=== PATIENT | female | born 1930 | race Caucasian/White ===

== ENCOUNTER 2016-10-28 12:39 | Emergency (ER) | payer MEDICARE, MEDICAID ==
[2016-10-28] MEDS ORDERED: Sodium Chloride 0.9% 1,000 ML IV ONE (13:19)
[2016-10-28] MEDS ORDERED: Ondansetron 4 MG/2 ML SDV IVPUSH ONE (13:21)
--- NOTE | 2016-10-28 13:35 | EDM.PDOC ---
<Arsenio Hay - Last Filed: 10/28/16 15:27> ED HPI GENERAL MEDICAL PROBLEM - General Chief Complaint: Abdominal Pain Stated Complaint: DIZZY, STOMACH PAIN, VOMITING Time Seen by Provider: 10/28/16 13:15 Source of Information: Reports: Patient History Limitations: Reports: No Limitations - History of Present Illness INITIAL COMMENTS - FREE TEXT/NARRATIVE: History of present illness: [86 year old female comes in complaining of abdominal pain. Indicates she has not had a bowel movement 2 days and her normal pattern is daily. Patient has a history of colon cancer as well as a very large abdominal hernia. Patient indicates that she has had nausea with scant amount of vomiting 2 days and no diarrhea.] Review of systems: As per history of present illness and below otherwise all systems reviewed and negative. Past medical history: As per history of present illness and as reviewed below otherwise noncontributory. Surgical history: As per history of present illness and as reviewed below otherwise noncontributory. Social history: No reported history of drug or alcohol abuse. Family history: As per history of present illness and as reviewed below otherwise noncontributory. Physical exam: HEENT: Atraumatic, normocephalic, pupils reactive, negative for conjunctival pallor or scleral icterus, mucous membranes moist, throat clear, neck supple, nontender, trachea midline. Lungs: Clear to auscultation, breath sounds equal bilaterally, chest nontender. Heart: A fib negative for clicks, rubs, or JVD. Abdomen: Soft, protuberant soft abdomen with slight diffuse nonspecific tenderness in bilateral lower quadrants. Negative for masses or hepatosplenomegaly. Negative for costovertebral tenderness. Pelvis: Stable nontender. Genitourinary: Deferred. Rectal: Deferred. Extremities: Atraumatic, negative for cords or calf pain. Neurovascular unremarkable. Neuro: Awake, alert, oriented. Cranial nerves II through XII unremarkable. Cerebellum unremarkable. Motor and sensory unremarkable throughout. Exam nonfocal. Called Dr. Cooper spoke to her in regards to the patient she indicated she felt the patient would better better served at a higher level of care secondary to her cardiac status, multi-morbidity, and age would merit a higher level ICU than what we had available. [facility] called, Dr. Andrade agreed to receive the patient. Diagnostics: [CBC, CMP, EKG, CT of abdomen without contrast] Therapeutics: [IV, Zofran] Impression: [Left lower small incarcerated hernia with potential strangulation by radiographic study] Plan: [Transfer to [place] [facility] ] Definitive disposition and diagnosis as appropriate pending reevaluation and review of above. Abdomen Pain Score (Numeric/FACES): 7 - Related Data Allergies Allergy/AdvReac Type Severity Reaction Status Date / Time No Known Allergies Allergy Verified 05/16/16 15:13 Home Meds: Home Meds Cyanocobalamin (Vitamin B-12) [B-12] 1,000 mcg PO DAILY 03/06/14 [History] Metoprolol Succinate [Toprol XL] 25 mg PO DAILY 03/06/14 [History] Omeprazole 20 mg PO ACBREAKFAST 03/06/14 [History] Levothyroxine 150 mcg PO SUTUWETHSA@0730 03/19/14 [History] atorvaSTATin [Lipitor] 10 mg PO BEDTIME 03/19/14 [History] Digoxin [Digox] 125 mcg PO DAILY 03/21/15 [History] Levothyroxine 75 mcg PO MOFR@0730 05/16/16 [History] Magnesium Oxide 400 mg PO BID 05/16/16 [History] Acetaminophen [Tylenol] 650 mg PO Q4H PRN #30 tablet 05/20/16 [Rx] Cephalexin [IJD: Cephalexin] 500 mg PO BID #10 capsule 05/20/16 [Rx] Nystatin [Nystop] 100,000 units TOP TID #1 bottle 05/20/16 [Rx] Iron Polysaccharide Complex [Polysaccharide Iron 150] 150 mg PO TID 10/28/16 [ History] LORazepam [Ativan] 0.5 mg PO TID PRN 10/28/16 [History] Rivaroxaban [Xarelto] 15 mg PO PCDINNER 10/28/16 [History] Past Medical History Cardiovascular History: Reports: Afib, Heart Failure Genitourinary History: Reports: UTI, Recurrent Other Genitourinary History: Kidney infection [employer]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: Musculoskeletal History: Reports: Arthritis Neurological History: Reports: CVA Endocrine/Metabolic History: Reports: Hypothyroidism Hematologic History: Reports: B12 Deficiency Oncologic (Cancer) History: Reports: Colon - Past Surgical History HEENT Surgical History: Reports: Cataract Surgery Cardiovascular Surgical History: Reports: None GI Surgical History: Reports: Hernia, Inguinal Social & Family History - Family History Family Medical History: Noncontributory - Tobacco Use Smoking Status *Q: Never Smoker Years of Tobacco use: 3 Used Tobacco, but Quit: Yes Month Tobacco Last Used: 30 years ago Second Hand Smoke Exposure: No - Caffeine Use Caffeine Use: Reports: None - Alcohol Use Days Per Week of Alcohol Use: 0 - Recreational Drug Use Recreational Drug Use: No ED ROS GENERAL - Review of Systems Review Of Systems: See Below (See history of present illness) ED EXAM, GI/ABD - Physical Exam Exam: See Below (See history of present illness) Course - Vital Signs Last Recorded V/S: Last Vital Signs Temp 36.8 C 10/28/16 16:03 Pulse 81 10/28/16 16:03 Resp 16 10/28/16 16:03 BP 128/56 L 10/28/16 16:03 Pulse Ox 91 L 10/28/16 16:03 - Orders/Labs/Meds Orders: Active Orders 24 hr Category Date Time Status EKG Documentation Completion [RC] STAT Care 10/28/16 13:19 Active Labs: Laboratory Tests 10/28/16 10/28/16 10/28/16 Range/Units 13:46 13:46 13:46 WBC 12.45 H (4.0-11.0) K/uL RBC 4.55 (4.30-5.90) M/uL Hgb 14.0 (12.0-16.0) g/dL Hct 43.8 (36.0-46.0) % MCV 96.3 (80.0-98.0) fL MCH 30.8 (27.0-32.0) pg MCHC 32.0 (31.0-37.0) g/dL RDW Std Deviation 47.2 (28.0-62.0) fl RDW Coeff of Nanette 14 (11.0-15.0) % Plt Count 176 (150-400) K/uL MPV 10.50 (7.40-12.00) fL Neut % (Auto) 80.0 (48.0-80.0) % Lymph % (Auto) 9.7 L (16.0-40.0) % [place] % (Auto) 10.2 (0.0-15.0) % Eos % (Auto) 0.0 (0.0-7.0) % Baso % (Auto) 0.1 (0.0-1.5) % Neut # (Auto) 10.0 H (1.4-5.7) K/uL Lymph # (Auto) 1.2 (0.6-2.4) K/uL [place] # (Auto) 1.3 H (0.0-0.8) K/uL Eos # (Auto) 0.0 (0.0-0.7) K/uL Baso # (Auto) 0.0 (0.0-0.1) K/uL Nucleated RBC % 0.0 /100WBC Nucleated RBCs # 0 K/uL Sodium 140 (136-146) mmol/L Potassium 3.5 (3.5-5.1) mmol/L Chloride 96 L (98-110) mmol/L Carbon Dioxide 28 (21-31) mmol/L BUN 37 H (6.0-23.0) mg/dL Creatinine 1.2 (0.6-1.5) mg/dL Est Cr Clr Drug Dosing 24.17 mL/min Estimated GFR (MDRD) 42.6 ml/min Glucose 153 H (60-110) mg/dL Calcium 9.9 (8.8-10.8) mg/dL Total Bilirubin 1.2 (0.1-1.5) mg/dL AST 21 (5-40) IU/L ALT 22 (8-54) IU/L Alkaline Phosphatase 53 (40-150) Troponin I < 0.10 (0.0-0.29) NG/ML Total Protein 8.0 (6.0-8.0) g/dL Albumin 4.5 (3.4-4.8) g/dL Globulin 3.5 (2.0-3.5) g/dL Albumin/Globulin Ratio 1.3 (1.3-2.8) Meds: Medications Discontinued Medications Generic Name Dose Route Start Last Admin Trade Name Freq PRN Reason Stop Dose Admin Sodium Chloride 1,000 mls @ 999 mls/hr 10/28/16 13:19 10/28/16 13:58 Normal Saline IV 10/28/16 14:19 999 mls/hr STAT ONE Administration Ondansetron HCl 4 mg 10/28/16 13:21 10/28/16 13:58 Zofran IVPUSH 10/28/16 13:22 4 mg ONETIME ONE Administration Departure - Departure Time of Disposition: 15:49 Disposition: DC/Tfer to Acute Hospital 02 Condition: Fair Clinical Impression: Incarcerated inguinal hernia, unilateral - Discharge Information Referrals: PCP,None [Primary Care Provider] - Forms: ED Department Discharge <Ronda Chris - Last Filed: 10/28/16 18:12> ED HPI GENERAL MEDICAL PROBLEM - History of Present Illness INITIAL COMMENTS - FREE TEXT/NARRATIVE: Please note that Dr. Sykes or junior mechanical engineer was involved with this case with respect to evaluating her EKG. There was some concern about her EKG and he reviewed this and felt that medical evaluation was indicated and he could be involved with the patient were admitted here
--- NOTE | 2016-10-28 15:24 | CT ---
CT of the abdomen and pelvis without contrast. HISTORY: Pain TECHNIQUE: Axial CT images were obtained of the abdomen and pelvis without contrast. Coronal and sag ittal reconstructions obtained. FINDINGS: Reticulated groundglass opacities are noted within the lung bases bilaterally. The liver, spleen, adrenal glands, and pancreas appear unremarkable for noncontrast examination. Cho lecystectomy. There is no bulky retroperitoneal lymphadenopathy. No abdominal ascites. The stomach is markedly dilated extending into the mid jejunum secondary to a small left inguinal he rnia. The herniated component demonstrates moderate adjacent stranding. There is also a broad-based midline abdominal hernia containing part of the stomach and bowel. Diverticulosis without evidence o f diverticulitis. There are no calcifications noted within the kidneys or along the courses of the ureters bilaterally . There is a small left renal cyst. Vascular calcifications are noted. There is no bulky pelvic lymphadenopathy. No free fluid. No free air. The urinary bladder appears no rmal. Degenerative changes are noted within the hips and lower spine. IMPRESSION: 1. High-grade small bowel obstruction within the mid point of the jejunum secondary to a left inguin al hernia. There is moderate stranding adjacent to the herniated portion of bowel, this may suggest strangulation. 2. Broad-based midline hernia containing stomach and bowel also noted. 3. Diverticulosis without evidence of diverticulitis. 4. Reticular and groundglass opacities within the lung bases, likely representing an atypical infect ious process, aspiration pneumonitis is also a consideration.
[2016-10-28 16:04] VITALS: BP 128/56
== END 2016-10-28 16:13 ==
LOC: MW.ED 12:39
DX: K40.90 Unilateral inguinal hernia, without obstruction or gangrene, not specified as recurrent (principal); I50.9 Heart failure, unspecified; I48.91 Unspecified atrial fibrillation; M19.90 Unspecified osteoarthritis, unspecified site; E03.9 Hypothyroidism, unspecified; Z86.73 Personal history of transient ischemic attack (TIA), and cerebral infarction without residual deficits; Z85.038 Personal history of other malignant neoplasm of large intestine; Z79.899 Other long term (current) drug therapy; Z98.49 Cataract extraction status, unspecified eye; Z98.890 Other specified postprocedural states; Z87.891 Personal history of nicotine dependence
CPT/HCPCS: 36415; 74176; 80053; 84484; 85025; 93005; 96361; 96374; 99284; J2405; J7040; 99285

== ENCOUNTER 2019-01-08 08:43 | Observation (INO) | payer MEDICARE, MEDICAID ==
[2019-01-08] MEDS ORDERED: Sodium Chloride 0.9% 1,000 ML IV ONE (08:46)
--- NOTE | 2019-01-08 08:53 | EDM.PDOC ---
ED HPI GENERAL MEDICAL PROBLEM - General Chief Complaint: General Stated Complaint: WEAKNESS Time Seen by Provider: 01/08/19 08:44 Source of Information: Reports: Patient, EMS History Limitations: Reports: No Limitations - History of Present Illness INITIAL COMMENTS - FREE TEXT/NARRATIVE: HISTORY AND PHYSICAL: History of present illness: Patient is an 88-year-old female who is brought in by EMS for concern of generalized weakness and daughter's concern for altered mental status. Patient states that she does have some left-sided chest/armpit pain today but states that she has had this before and has had evaluated prior without significant findings according to patient. Patient states she does have weakness of her right leg and her right arm but this is her baseline and she has had this for many years. Patient states she has a history of colon cancer but has been in remission over the past 6 years and states her "heart doesnt pump right." Patient denies fever, chills, chest pain, shortness of breath, or cough. Denies headache, neck stiff ness, change in vision, syncope, or near syncope. Denies nausea, vomiting, abdominal pain, diarrhea, constipation, or dysuria. Has not noted any blood in urine or stool. Patient has been eating and drinking appropriately. Review of systems: As per history of present illness and below otherwise all systems reviewed and negative. Past medical history: As per history of present illness and as reviewed below otherwise noncontributory. Surgical history: As per history of present illness and as reviewed below otherwise noncontributory. Social history: See social history for further information Family history: As per history of present illness and as reviewed below otherwise noncontributory. Physical exam: General: Patient is alert, oriented, and in no acute distress. Patient sitting comfortably on exam table. HEENT: Atraumatic, normocephalic, pupils equal and reactive bilaterally, negative for conjunctival pallor or scleral icterus, mucous membranes dry and tacky, TMs normal bilaterally, throat clear, neck supple, nontender, trachea midline. No drooling or trismus noted. No meningeal signs. No hot potato voice noted. Lungs: Diminished bilaterally but Clear to auscultation, breath sounds equal bilaterally, chest nontender. Heart: S1S2, regular rate and rhythm with systolic ejection murmur best heard at the left upper sternal border Abdomen: Soft, nondistended, nontender. Negative for masses or hepatosplenomegaly. Negative for costovertebral tenderness. Pelvis: Stable nontender. Genitourinary: Deferred. Rectal: Deferred. Skin: Intact, warm, dry. No lesions or rashes noted. Extremities: Atraumatic, negative for cords or calf pain. Neurovascular unremarkable. Neuro: Awake, alert, oriented to person place and time. Cranial nerves II through XII unremarkable. Cerebellum unremarkable. Motor and sensory unremarkable throughout. Exam nonfocal. Notes: [facility] 15 Dr. Jaramillo consult on patient and will admit to observation. Voices understanding and is agreeable to plan of care. Denies any further questions or concerns at this time. Diagnostics: CBC, CMP, UA, EKG, troponin, chest x-ray, PT/INR,head CT Therapeutics: Saline Impression: Congestive Heart Failure exacerbation Weakness Dyspnea Plan: 1. Admit to observation to Dr. Jaramillo. Definitive disposition and diagnosis as appropriate pending reevaluation and review of above. - Related Data Allergies Allergy/AdvReac Type Severity Reaction Status Date / Time No Known Allergies Allergy Verified 05/16/16 15:13 Home Meds: Home Meds Metoprolol Succinate [Toprol XL] 25 mg PO DAILY 03/06/14 [History] Omeprazole 20 mg PO ACBREAKFAST 03/06/14 [History] Levothyroxine 150 mcg PO MOWEFR@0730 03/19/14 [History] atorvaSTATin [Lipitor] 10 mg PO BEDTIME 03/19/14 [History] Digoxin [Digox] 125 mcg PO DAILY 03/21/15 [History] Levothyroxine 75 mcg PO SUTUTHSA@0730 05/16/16 [History] Magnesium Oxide 400 mg PO BID 05/16/16 [History] Rivaroxaban [Xarelto] 15 mg PO PCDINNER 10/28/16 [History] Past Medical History Cardiovascular History: Reports: Afib, Heart Failure Genitourinary History: Reports: UTI, Recurrent Other Genitourinary History: Kidney infection 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: Musculoskeletal History: Reports: Arthritis Neurological History: Reports: CVA Endocrine/Metabolic History: Reports: Hypothyroidism Hematologic History: Reports: B12 Deficiency Oncologic (Cancer) History: Reports: Colon - Past Surgical History HEENT Surgical History: Reports: Cataract Surgery Cardiovascular Surgical History: Reports: None GI Surgical History: Reports: Hernia, Inguinal Social & Family History - Family History Family Medical History: Noncontributory - Caffeine Use Caffeine Use: Reports: None ED ROS GENERAL - Review of Systems Review Of Systems: ROS reveals no pertinent complaints other than HPI. ED EXAM, GENERAL - Physical Exam Exam: See Below (see dictation) Course - Vital Signs Last Recorded V/S: Last Vital Signs Temp 35.9 C 01/08/19 10:48 Pulse 79 01/08/19 10:48 Resp 20 01/08/19 10:48 BP 152/116 H 01/08/19 10:48 Pulse Ox 98 01/08/19 10:48 - Orders/Labs/Meds Orders: Active Orders 24 hr Category Date Time Status Admission Status [Patient Status] [ADT] Stat ADT 01/08/19 10:55 Ordered EKG Documentation Completion [RC] STAT Care 01/08/19 08:45 Active Labs: Laboratory Tests 01/08/19 01/08/19 01/08/19 Range/Units 09:06 09:06 09:06 WBC 4.12 (4.0-11.0) K/uL RBC 3.34 L (4.30-5.90) M/uL Hgb 7.7 L (12.0-16.0) g/dL Hct 27.0 L (36.0-46.0) % MCV 80.8 (80.0-98.0) fL MCH 23.1 L (27.0-32.0) pg MCHC 28.5 L (31.0-37.0) g/dL RDW Std Deviation 50.8 (28.0-62.0) fl RDW Coeff of Nanette 17 H (11.0-15.0) % Plt Count 178 (150-400) K/uL MPV 9.10 (7.40-12.00) fL Neut % (Auto) 56.5 (48.0-80.0) % Lymph % (Auto) 26.0 (16.0-40.0) % [place] % (Auto) 12.4 (0.0-15.0) % Eos % (Auto) 4.1 (0.0-7.0) % Baso % (Auto) 1.0 (0.0-1.5) % Neut # (Auto) 2.3 (1.4-5.7) K/uL Lymph # (Auto) 1.1 (0.6-2.4) K/uL [place] # (Auto) 0.5 (0.0-0.8) K/uL Eos # (Auto) 0.2 (0.0-0.7) K/uL Baso # (Auto) 0.0 (0.0-0.1) K/uL Nucleated RBC % 0.0 /100WBC Nucleated RBCs # 0 K/uL INR 1.37 Sodium 139 (136-145) mmol/L Potassium 4.4 (3.5-5.1) mmol/L Chloride 104 (98-107) mmol/L Carbon Dioxide 31.0 (21.0-32.0) mmol/L BUN 16 (7.0-18.0) mg/dL Creatinine 1.1 H (0.6-1.0) mg/dL Est Cr Clr Drug Dosing TNP Estimated GFR (MDRD) 46.9 ml/min Glucose 88 (74-106) mg/dL Calcium 8.6 (8.5-10.1) mg/dL Total Bilirubin 0.5 (0.2-1.0) mg/dL AST 23 (15-37) IU/L ALT 19 (14-63) IU/L Alkaline Phosphatase 54 (46-116) U/L Troponin I < 0.050 (0.000-0.056) ng/mL B-Natriuretic Peptide (<100) PG/ML Total Protein 6.3 L (6.4-8.2) g/dL Albumin 2.9 L (3.4-5.0) g/dL Globulin 3.4 (2.6-4.0) g/dL Albumin/Globulin Ratio 0.9 (0.9-1.6) Urine Color Urine Appearance Urine pH (5.0-8.0) Ur Specific [place] (1.001-1.035) Urine Protein (NEGATIVE) mg/dL Urine Glucose (UA) (NEGATIVE) mg/dL Urine Ketones (NEGATIVE) mg/dL Urine Occult Blood (NEGATIVE) Urine Nitrite (NEGATIVE) Urine Bilirubin (NEGATIVE) Urine Urobilinogen (<2.0) EU/dL Ur Leukocyte Esterase (NEGATIVE) 01/08/19 01/08/19 Range/Units 09:06 10:21 WBC (4.0-11.0) K/uL RBC (4.30-5.90) M/uL Hgb (12.0-16.0) g/dL Hct (36.0-46.0) % MCV (80.0-98.0) fL MCH (27.0-32.0) pg MCHC (31.0-37.0) g/dL RDW Std Deviation (28.0-62.0) fl RDW Coeff of Nanette (11.0-15.0) % Plt Count (150-400) K/uL MPV (7.40-12.00) fL Neut % (Auto) (48.0-80.0) % Lymph % (Auto) (16.0-40.0) % [place] % (Auto) (0.0-15.0) % Eos % (Auto) (0.0-7.0) % Baso % (Auto) (0.0-1.5) % Neut # (Auto) (1.4-5.7) K/uL Lymph # (Auto) (0.6-2.4) K/uL [place] # (Auto) (0.0-0.8) K/uL Eos # (Auto) (0.0-0.7) K/uL Baso # (Auto) (0.0-0.1) K/uL Nucleated RBC % /100WBC Nucleated RBCs # K/uL INR Sodium (136-145) mmol/L Potassium (3.5-5.1) mmol/L Chloride (98-107) mmol/L Carbon Dioxide (21.0-32.0) mmol/L BUN (7.0-18.0) mg/dL Creatinine (0.6-1.0) mg/dL Est Cr Clr Drug Dosing Estimated GFR (MDRD) ml/min Glucose (74-106) mg/dL Calcium (8.5-10.1) mg/dL Total Bilirubin (0.2-1.0) mg/dL AST (15-37) IU/L ALT (14-63) IU/L Alkaline Phosphatase (46-116) U/L Troponin I (0.000-0.056) ng/mL B-Natriuretic Peptide 645 H (<100) PG/ML Total Protein (6.4-8.2) g/dL Albumin (3.4-5.0) g/dL Globulin (2.6-4.0) g/dL Albumin/Globulin Ratio (0.9-1.6) Urine Color YELLOW Urine Appearance CLEAR Urine pH 6.0 (5.0-8.0) Ur Specific [place] 1.015 (1.001-1.035) Urine Protein NEGATIVE (NEGATIVE) mg/dL Urine Glucose (UA) NEGATIVE (NEGATIVE) mg/dL Urine Ketones NEGATIVE (NEGATIVE) mg/dL Urine Occult Blood NEGATIVE (NEGATIVE) Urine Nitrite NEGATIVE (NEGATIVE) Urine Bilirubin NEGATIVE (NEGATIVE) Urine Urobilinogen 0.2 (<2.0) EU/dL Ur Leukocyte Esterase NEGATIVE (NEGATIVE) Meds: Medications Discontinued Medications Generic Name Dose Route Start Last Admin Trade Name Freq PRN Reason Stop Dose Admin Sodium Chloride 1,000 mls @ 500 mls/hr 01/08/19 08:46 01/08/19 09:14 Normal Saline IV 01/08/19 10:45 500 mls/hr STAT ONE Administration Departure - Departure Time of Disposition: 10:57 Disposition: Refer to Observation Clinical Impression: Weakness Congestive heart failure Qualifiers: Heart failure type: unspecified Heart failure chronicity: unspecified Qualified Code(s): I50.9 - Heart failure, unspecified Dyspnea Qualifiers: Dyspnea type: dyspnea on exertion Qualified Code(s): R06.09 - Other forms of dyspnea - Discharge Information - My Orders Last 24 Hours: My Active Orders 01/08/19 08:45 EKG Documentation Completion [RC] STAT 01/08/19 10:55 Admission Status [Patient Status] [ADT] Stat - Assessment/Plan Last 24 Hours: My Active Orders 01/08/19 08:45 EKG Documentation Completion [RC] STAT 01/08/19 10:55 Admission Status [Patient Status] [ADT] Stat
[2019-01-08 09:46] LABS: CHLORIDE,CL 104 mmol/L (98-107); SODIUM,NA 139 mmol/L (136-145)
--- NOTE | 2019-01-08 09:50 | CR ---
INDICATION: Chest pain. COMPARISON: Chest x-ray dated 04 January 2019. FINDINGS: A single portable chest x-ray shows a mildly enlarged cardiac silhouette. Atherosclerotic and tortuous aorta. The lungs show a small right-sided pleural effusion which is slightly increased in size. No focal pulmonary opacities. No pneumothorax. IMPRESSION: 1. Small right-sided pleural effusion is slightly increased in size. Dictated by Arsenio Abbasi MD @ 01/08/2019 9:48:47 AM Dictated by: Arsenio Abbasi MD @ 01/08/2019 09:49:03 (Electronically Signed)
--- NOTE | 2019-01-08 10:47 | CT ---
INDICATION: weakness Technique: Non-contrast head CT scan. Findings: Diffuse decreased attenuation of the periventricular white matter which likely represents small vessel ischemic disease. No other abnormal foci of altered attenuation in the brain parenchyma. No midline shift or mass effect. No hydrocephalus. No abnormal extra-axial fluid collections. Atrophic changes of the brain parenchyma. No abnormalities identified in the visualized portions of the paranasal sinuses, skull, and scalp. Impression: No evidence of acute intracranial abnormalities. Dictated by: Arsenio Abbasi MD @ 01/08/2019 10:45:39 (Electronically Signed)
[2019-01-08] MEDS ORDERED: Furosemide 20 MG/2 ML VIAL IVPUSH ONE ×2 (12:54→14:45)
[2019-01-08] MEDS ORDERED: Acetaminophen 325 MG Tab PO PRN (12:57)
[2019-01-08] MEDS ORDERED: Ondansetron 4 MG/2 ML SDV IVPUSH PRN (12:58)
--- NOTE | 2019-01-08 13:10 | PCM.HP.2 ---
H&P History of Present Illness - General Date of Service: 01/08/19 Admit Problem/Dx: Admission Diagnosis/Problem Admission Diagnosis/Problem Congestive heart failure Source of Information: Patient, Family History Limitations: Reports: No Limitations - History of Present Illness Initial Comments - Free Text/Narative: Radha is a 88-year-old female with a past medical history of A. fib, cardiomyopathy, atherosclerosis status post right endarterectomy, colon cancer in remission and osteoarthritis of the knees brought in by daughter w/ concerns of strokelike symptoms. Daughter states while speaking to mother over the phone , patient was slurring her speech, and after visiting mother she noticed mother was weak, fatigued and was not behaving at her baseline. Patient has had history of stroke in the past and is high risk secondary to her atherosclerosis and right endarterectomy. daughter states colon cancer is in remission however does CAD iron infusions at regular intervals. Daughter also mentions that other physicians are not aware of location of possible GI bleeding despite having numerous colonoscopies. ED course: patient received half a liter normal saline, chest x-ray showed a small right-sided pleural effusion which is stable from 4 days ago, head CT showed no acute intracranial bleeds. Lab study showed decreased iron and elevated BNP of 640. EKG: irregular rhythm with right bundle branch block; rate 88, rhythm irregularly irregular right bundle branch block. Marginal ST depression. Bedside: patient seen at bedside, currently on 2 L nasal cannula secondary to shortness of breath, however when seen, states she no longer feels shortness of breath weak or tired. Did mention having a brief moment of left-sided chest pain which was short-lived and resolved completely before arrival to the emergency department. Patient has no other concerns at this time. - Related Data Allergies/Adverse Reactions: Allergies Allergy/AdvReac Type Severity Reaction Status Date / Time No Known Allergies Allergy Verified 01/08/19 13:15 Home Medications: Home Meds Metoprolol Succinate [Toprol XL] 25 mg PO DAILY 03/06/14 [History] Omeprazole 20 mg PO ACBREAKFAST 03/06/14 [History] Levothyroxine 150 mcg PO MOWEFR@0730 03/19/14 [History] atorvaSTATin [Lipitor] 10 mg PO BEDTIME 03/19/14 [History] Digoxin [Digox] 125 mcg PO DAILY 03/21/15 [History] Levothyroxine 75 mcg PO SUTUTHSA@0730 05/16/16 [History] Magnesium Oxide 400 mg PO BID 05/16/16 [History] Rivaroxaban [Xarelto] 15 mg PO PCDINNER 10/28/16 [History] Past Medical History Cardiovascular History: Reports: Afib, Heart Failure Genitourinary History: Reports: UTI, Recurrent Other Genitourinary History: Kidney infection HOME OFFICE REPRESENTATIVE History: Reports: Musculoskeletal History: Reports: Arthritis Neurological History: Reports: CVA Endocrine/Metabolic History: Reports: Hypothyroidism Hematologic History: Reports: B12 Deficiency Oncologic (Cancer) History: Reports: Colon - Past Surgical History HEENT Surgical History: Reports: Cataract Surgery Cardiovascular Surgical History: Reports: None GI Surgical History: Reports: Hernia, Inguinal Social & Family History - Family History Family Medical History: Noncontributory - Tobacco Use Smoking Status *Q: Former Smoker Used Tobacco, but Quit: Yes Month/Year Tobacco Last Used: 35 yrs ago - Caffeine Use Caffeine Use: Reports: Coffee, Soda, Tea - Recreational Drug Use Recreational Drug Use: No H&P Review of Systems - Review of Systems: Review Of Systems: See Below General: Reports: No Symptoms HEENT: Reports: No Symptoms Pulmonary: Reports: Shortness of Breath. Denies: Cough Cardiovascular: Reports: No Symptoms. Denies: Chest Pain, Orthopnea, Edema Gastrointestinal: Denies: Black Stool, Bloody Stool, Constipation, Diarrhea, Melena Genitourinary: Reports: No Symptoms Musculoskeletal: Reports: No Symptoms Skin: Reports: No Symptoms Psychiatric: Reports: No Symptoms Neurological: Reports: No Symptoms Hematologic/Lymphatic: Reports: Anemia Exam - Exam Exam: See Below - Vital Signs Vital Signs: Last Vital Signs Temp 96.6 F 01/08/19 10:48 Pulse 86 01/08/19 11:51 Resp 17 01/08/19 11:51 BP 147/68 H 01/08/19 11:51 Pulse Ox 100 01/08/19 11:51 Weight: 135 lb 1 oz - Exam Quality Assessment: Supplemental Oxygen (2 l NC ) General: Alert, Oriented, Cooperative HEENT: Conjunctiva Clear, EOMI, Hearing Intact, Mucosa Moist & [place] Neck: Supple, Trachea Midline Lungs: Decreased Breath Sounds (bases but air movement appreciated ) Cardiovascular: Irregular Rhythm GI/Abdominal Exam: Soft, Non-Tender, No Distention Back Exam: Other (kyphosis ) Extremities: Non-Tender, Pedal Edema, Other (+1 pitting edema lower ) Skin: Warm, Dry, Intact Neurological: Cranial Nerves Intact, Strength Equal Bilateral, Normal Speech, Sensation Intact Neuro Extensive - Mental Status: Alert, Oriented x3, Normal Mood/Affect, Normal Cognition Neuro Extensive - Motor, Sensory, Reflexes: CN II-XII Intact Psychiatric: Alert, Normal Mood - Patient Data Lab Results Last 24 hrs: Laboratory Results - last 24 hr 01/08/19 01/08/19 01/08/19 Range/Units 09:06 09:06 09:06 WBC 4.12 (4.0-11.0) K/uL RBC 3.34 L (4.30-5.90) M/uL Hgb 7.7 L (12.0-16.0) g/dL Hct 27.0 L (36.0-46.0) % MCV 80.8 (80.0-98.0) fL MCH 23.1 L (27.0-32.0) pg MCHC 28.5 L (31.0-37.0) g/dL RDW Std Deviation 50.8 (28.0-62.0) fl RDW Coeff of Nanette 17 H (11.0-15.0) % Plt Count 178 (150-400) K/uL MPV 9.10 (7.40-12.00) fL Neut % (Auto) 56.5 (48.0-80.0) % Lymph % (Auto) 26.0 (16.0-40.0) % [place] % (Auto) 12.4 (0.0-15.0) % Eos % (Auto) 4.1 (0.0-7.0) % Baso % (Auto) 1.0 (0.0-1.5) % Neut # (Auto) 2.3 (1.4-5.7) K/uL Lymph # (Auto) 1.1 (0.6-2.4) K/uL [place] # (Auto) 0.5 (0.0-0.8) K/uL Eos # (Auto) 0.2 (0.0-0.7) K/uL Baso # (Auto) 0.0 (0.0-0.1) K/uL Nucleated RBC % 0.0 /100WBC Nucleated RBCs # 0 K/uL INR 1.37 Sodium 139 (136-145) mmol/L Potassium 4.4 (3.5-5.1) mmol/L Chloride 104 (98-107) mmol/L Carbon Dioxide 31.0 (21.0-32.0) mmol/L BUN 16 (7.0-18.0) mg/dL Creatinine 1.1 H (0.6-1.0) mg/dL Est Cr Clr Drug Dosing TNP Estimated GFR (MDRD) 46.9 ml/min Glucose 88 (74-106) mg/dL Calcium 8.6 (8.5-10.1) mg/dL Total Bilirubin 0.5 (0.2-1.0) mg/dL AST 23 (15-37) IU/L ALT 19 (14-63) IU/L Alkaline Phosphatase 54 (46-116) U/L Troponin I < 0.050 (0.000-0.056) ng/mL B-Natriuretic Peptide (<100) PG/ML Total Protein 6.3 L (6.4-8.2) g/dL Albumin 2.9 L (3.4-5.0) g/dL Globulin 3.4 (2.6-4.0) g/dL Albumin/Globulin Ratio 0.9 (0.9-1.6) Urine Color Urine Appearance Urine pH (5.0-8.0) Ur Specific [place] (1.001-1.035) Urine Protein (NEGATIVE) mg/dL Urine Glucose (UA) (NEGATIVE) mg/dL Urine Ketones (NEGATIVE) mg/dL Urine Occult Blood (NEGATIVE) Urine Nitrite (NEGATIVE) Urine Bilirubin (NEGATIVE) Urine Urobilinogen (<2.0) EU/dL Ur Leukocyte Esterase (NEGATIVE) 01/08/19 01/08/19 Range/Units 09:06 10:21 WBC (4.0-11.0) K/uL RBC (4.30-5.90) M/uL Hgb (12.0-16.0) g/dL Hct (36.0-46.0) % MCV (80.0-98.0) fL MCH (27.0-32.0) pg MCHC (31.0-37.0) g/dL RDW Std Deviation (28.0-62.0) fl RDW Coeff of Nanette (11.0-15.0) % Plt Count (150-400) K/uL MPV (7.40-12.00) fL Neut % (Auto) (48.0-80.0) % Lymph % (Auto) (16.0-40.0) % [place] % (Auto) (0.0-15.0) % Eos % (Auto) (0.0-7.0) % Baso % (Auto) (0.0-1.5) % Neut # (Auto) (1.4-5.7) K/uL Lymph # (Auto) (0.6-2.4) K/uL [place] # (Auto) (0.0-0.8) K/uL Eos # (Auto) (0.0-0.7) K/uL Baso # (Auto) (0.0-0.1) K/uL Nucleated RBC % /100WBC Nucleated RBCs # K/uL INR Sodium (136-145) mmol/L Potassium (3.5-5.1) mmol/L Chloride (98-107) mmol/L Carbon Dioxide (21.0-32.0) mmol/L BUN (7.0-18.0) mg/dL Creatinine (0.6-1.0) mg/dL Est Cr Clr Drug Dosing Estimated GFR (MDRD) ml/min Glucose (74-106) mg/dL Calcium (8.5-10.1) mg/dL Total Bilirubin (0.2-1.0) mg/dL AST (15-37) IU/L ALT (14-63) IU/L Alkaline Phosphatase (46-116) U/L Troponin I (0.000-0.056) ng/mL B-Natriuretic Peptide 645 H (<100) PG/ML Total Protein (6.4-8.2) g/dL Albumin (3.4-5.0) g/dL Globulin (2.6-4.0) g/dL Albumin/Globulin Ratio (0.9-1.6) Urine Color YELLOW Urine Appearance CLEAR Urine pH 6.0 (5.0-8.0) Ur Specific [place] 1.015 (1.001-1.035) Urine Protein NEGATIVE (NEGATIVE) mg/dL Urine Glucose (UA) NEGATIVE (NEGATIVE) mg/dL Urine Ketones NEGATIVE (NEGATIVE) mg/dL Urine Occult Blood NEGATIVE (NEGATIVE) Urine Nitrite NEGATIVE (NEGATIVE) Urine Bilirubin NEGATIVE (NEGATIVE) Urine Urobilinogen 0.2 (<2.0) EU/dL Ur Leukocyte Esterase NEGATIVE (NEGATIVE) Result Diagrams: 01/08/19 09:06 01/08/19 09:06 Problem List Initiated/Reviewed/Updated: Yes Orders Last 24hrs: Active Orders 24 hr Category Date Time Status Admission Status [Patient Status] [ADT] Stat ADT 01/08/19 10:55 Active EKG Documentation Completion [RC] STAT Care 01/08/19 08:45 Active Intake and Output Strict [RC] ASDIRECTED Care 01/08/19 12:54 Ordered Telemetry Monitoring [Cardiac Monitoring] [RC] . Care 01/08/19 12:17 Active DIRECTED Vital Signs [RC] PER UNIT ROUTINE Care 01/08/19 12:54 Ordered PT Evaluation and Treatment [CONS] Routine Cons 01/08/19 12:54 Ordered Heart Healthy Diet [DIET] Diet 01/08/19 Dinner Ordered Brain wo Cont [MR] Stat Exams 01/08/19 12:54 Ordered Echo Comp wo Cont [US] Stat Exams 01/08/19 12:54 Ordered OCCULT BLOOD DIAGNOSTIC [OP] Routine Lab 01/08/19 12:54 Ordered Acetaminophen [Tylenol] Med 01/08/19 12:57 Ordered 650 mg PO Q4H PRN Furosemide [Lasix] Med 01/08/19 12:54 Once 20 mg IVPUSH ONETIME ONE Ondansetron [Zofran] Med 01/08/19 12:58 Ordered 4 mg IVPUSH Q4H PRN Resuscitation Status Routine Resus Stat 01/08/19 12:54 Ordered Assessment/Plan Comment:: Assessment: 1. weakness possibly secondary to anemia versus CHF exacerbation 2. elevated BNP 3. Normocytic anemia with iron deficiency 4. Small right-sided pleural effusion Plan: 1. Weakness: MRI of brain; head CT negative however concerns for other acute intracranial pathology will be evaluated. 2. CHF exacerbation: echo will be ordered as previous echoes from 2013 with ejection fraction 55%. We'll provide patient with 20 mg 1 dose of furosemide. 3. Anemia: will order a stool occult and possibly contact GI if necessary. 4. Strict I's and O's. Vitals per routine. Patient is continued on Xarelto for DVT prophylaxis; we'll discontinue Xarelto if stool occult is positive.diet: cardiac; no caffeine.
--- NOTE | 2019-01-08 17:19 | PCM.PN ---
- General Info Date of Service: 01/08/19 Subjective Update: spoke to patient and daughter extensively about risk/benefits of being on Xarelto despite chronic bleed. Risks of stroke were discussed if off anti- coagulation. pt. states she would like to CONTINUE her current medication regimen as this has not been bothering her. Explained to pt. her Hgb has been stable the past month. pt. understood. - Patient Data Vitals - Most Recent: Last Vital Signs Temp 96.1 F 01/08/19 12:45 Pulse 82 01/08/19 12:45 Resp 16 01/08/19 12:45 BP 161/78 H 01/08/19 12:45 Pulse Ox 98 01/08/19 13:00 Weight - Most Recent: 135 lb 1 oz Lab Results Last 24 Hours: Laboratory Results - last 24 hr 01/08/19 01/08/19 01/08/19 Range/Units 09:06 09:06 09:06 WBC 4.12 (4.0-11.0) K/uL RBC 3.34 L (4.30-5.90) M/uL Hgb 7.7 L (12.0-16.0) g/dL Hct 27.0 L (36.0-46.0) % MCV 80.8 (80.0-98.0) fL MCH 23.1 L (27.0-32.0) pg MCHC 28.5 L (31.0-37.0) g/dL RDW Std Deviation 50.8 (28.0-62.0) fl RDW Coeff of Nanette 17 H (11.0-15.0) % Plt Count 178 (150-400) K/uL MPV 9.10 (7.40-12.00) fL Neut % (Auto) 56.5 (48.0-80.0) % Lymph % (Auto) 26.0 (16.0-40.0) % [place] % (Auto) 12.4 (0.0-15.0) % Eos % (Auto) 4.1 (0.0-7.0) % Baso % (Auto) 1.0 (0.0-1.5) % Neut # (Auto) 2.3 (1.4-5.7) K/uL Lymph # (Auto) 1.1 (0.6-2.4) K/uL [place] # (Auto) 0.5 (0.0-0.8) K/uL Eos # (Auto) 0.2 (0.0-0.7) K/uL Baso # (Auto) 0.0 (0.0-0.1) K/uL Nucleated RBC % 0.0 /100WBC Nucleated RBCs # 0 K/uL INR 1.37 Sodium 139 (136-145) mmol/L Potassium 4.4 (3.5-5.1) mmol/L Chloride 104 (98-107) mmol/L Carbon Dioxide 31.0 (21.0-32.0) mmol/L BUN 16 (7.0-18.0) mg/dL Creatinine 1.1 H (0.6-1.0) mg/dL Est Cr Clr Drug Dosing TNP Estimated GFR (MDRD) 46.9 ml/min Glucose 88 (74-106) mg/dL Calcium 8.6 (8.5-10.1) mg/dL Total Bilirubin 0.5 (0.2-1.0) mg/dL AST 23 (15-37) IU/L ALT 19 (14-63) IU/L Alkaline Phosphatase 54 (46-116) U/L Troponin I < 0.050 (0.000-0.056) ng/mL B-Natriuretic Peptide (<100) PG/ML Total Protein 6.3 L (6.4-8.2) g/dL Albumin 2.9 L (3.4-5.0) g/dL Globulin 3.4 (2.6-4.0) g/dL Albumin/Globulin Ratio 0.9 (0.9-1.6) Urine Color Urine Appearance Urine pH (5.0-8.0) Ur Specific [place] (1.001-1.035) Urine Protein (NEGATIVE) mg/dL Urine Glucose (UA) (NEGATIVE) mg/dL Urine Ketones (NEGATIVE) mg/dL Urine Occult Blood (NEGATIVE) Urine Nitrite (NEGATIVE) Urine Bilirubin (NEGATIVE) Urine Urobilinogen (<2.0) EU/dL Ur Leukocyte Esterase (NEGATIVE) 01/08/19 01/08/19 Range/Units 09:06 10:21 WBC (4.0-11.0) K/uL RBC (4.30-5.90) M/uL Hgb (12.0-16.0) g/dL Hct (36.0-46.0) % MCV (80.0-98.0) fL MCH (27.0-32.0) pg MCHC (31.0-37.0) g/dL RDW Std Deviation (28.0-62.0) fl RDW Coeff of Nanette (11.0-15.0) % Plt Count (150-400) K/uL MPV (7.40-12.00) fL Neut % (Auto) (48.0-80.0) % Lymph % (Auto) (16.0-40.0) % [place] % (Auto) (0.0-15.0) % Eos % (Auto) (0.0-7.0) % Baso % (Auto) (0.0-1.5) % Neut # (Auto) (1.4-5.7) K/uL Lymph # (Auto) (0.6-2.4) K/uL [place] # (Auto) (0.0-0.8) K/uL Eos # (Auto) (0.0-0.7) K/uL Baso # (Auto) (0.0-0.1) K/uL Nucleated RBC % /100WBC Nucleated RBCs # K/uL INR Sodium (136-145) mmol/L Potassium (3.5-5.1) mmol/L Chloride (98-107) mmol/L Carbon Dioxide (21.0-32.0) mmol/L BUN (7.0-18.0) mg/dL Creatinine (0.6-1.0) mg/dL Est Cr Clr Drug Dosing Estimated GFR (MDRD) ml/min Glucose (74-106) mg/dL Calcium (8.5-10.1) mg/dL Total Bilirubin (0.2-1.0) mg/dL AST (15-37) IU/L ALT (14-63) IU/L Alkaline Phosphatase (46-116) U/L Troponin I (0.000-0.056) ng/mL B-Natriuretic Peptide 645 H (<100) PG/ML Total Protein (6.4-8.2) g/dL Albumin (3.4-5.0) g/dL Globulin (2.6-4.0) g/dL Albumin/Globulin Ratio (0.9-1.6) Urine Color YELLOW Urine Appearance CLEAR Urine pH 6.0 (5.0-8.0) Ur Specific [place] 1.015 (1.001-1.035) Urine Protein NEGATIVE (NEGATIVE) mg/dL Urine Glucose (UA) NEGATIVE (NEGATIVE) mg/dL Urine Ketones NEGATIVE (NEGATIVE) mg/dL Urine Occult Blood NEGATIVE (NEGATIVE) Urine Nitrite NEGATIVE (NEGATIVE) Urine Bilirubin NEGATIVE (NEGATIVE) Urine Urobilinogen 0.2 (<2.0) EU/dL Ur Leukocyte Esterase NEGATIVE (NEGATIVE) Renato Results Last 24 Hours: Microbiology 01/08/19 15:12 Stool Occult Blood (RENATO) - Final Stool / Feces POSITIVE OCCULT BLOOD REFERENCE RANGE: NEGATIVE Med Orders - Current: Current Medications Acetaminophen (Tylenol) 650 mg PO Q4H PRN PRN Reason: Pain/Fever Atorvastatin Calcium (Lipitor) 10 mg PO BEDTIME YAMILKA Digoxin (Lanoxin) 125 mcg PO DAILY YAMILKA Levothyroxine Sodium (Levothyroxine) 75 mcg PO SUTUTHSA@0730 Y[facility]ILKA Levothyroxine Sodium (Levothyroxine) 150 mcg PO MOWEFR@0730 [facility] Magnesium Oxide (Magnesium Oxide) 400 mg PO BID [facility] Metoprolol Succinate (Toprol Xl) 25 mg PO DAILY YAMILKA Omeprazole (Omeprazole) 20 mg PO ACBREAKFAST YAMILKA Ondansetron HCl (Zofran) 4 mg IVPUSH Q4H PRN PRN Reason: Nausea/Vomiting Rivaroxaban (Xarelto) 15 mg PO PCDINNER YAMILKA Discontinued Medications Furosemide (Lasix) 20 mg IVPUSH ONETIME ONE Stop: 01/08/19 14:46 Last Admin: 01/08/19 14:37 Dose: 20 mg Sodium Chloride (Normal Saline) 1,000 mls @ 500 mls/hr IV STAT ONE Stop: 01/08/19 10:45 Last Admin: 01/08/19 09:14 Dose: 500 mls/hr - Problem List Review Problem List Initiated/Reviewed/Updated: Yes - My Orders Last 24 Hours: My Active Orders 01/08/19 12:54 Intake and Output Strict [RC] ASDIRECTED Vital Signs [RC] PER UNIT ROUTINE PT Evaluation and Treatment [CONS] Routine Brain wo Cont [MR] Stat Echo Comp wo Cont [US] Stat Resuscitation Status Routine 01/08/19 12:57 Acetaminophen [Tylenol] 650 mg PO Q4H PRN 01/08/19 12:58 Ondansetron [Zofran] 4 mg IVPUSH Q4H PRN 01/08/19 18:00 Rivaroxaban [Xarelto] 15 mg PO PCDINNER 01/08/19 21:00 Magnesium Oxide 400 mg PO BID atorvaSTATin [Lipitor] 10 mg PO BEDTIME 01/08/19 Dinner Heart Healthy Diet [DIET] 01/09/19 05:11 BASIC METABOLIC PANEL,BMP [CHEM] AM CBC WITH AUTO DIFF [HEME] AM 01/09/19 06:30 Levothyroxine 75 mcg PO SUTUTHSA@0730 01/09/19 07:30 Omeprazole 20 mg PO ACBREAKFAST 01/09/19 09:00 Digoxin [Lanoxin] 125 mcg PO DAILY Metoprolol Succinate [Toprol XL] 25 mg PO DAILY 01/10/19 05:11 BASIC METABOLIC PANEL,BMP [CHEM] AM CBC WITH AUTO DIFF [HEME] AM 01/10/19 06:30 Levothyroxine 150 mcg PO MOWEFR@30 01/11/19 05:11 BASIC METABOLIC PANEL,BMP [CHEM] AM CBC WITH AUTO DIFF [HEME] AM 01/12/19 05:11 BASIC METABOLIC PANEL,BMP [CHEM] AM CBC WITH AUTO DIFF [HEME] AM 01/13/19 05:11 BASIC METABOLIC PANEL,BMP [CHEM] AM CBC WITH AUTO DIFF [HEME] AM - Plan Plan:: Assessment: 1. weakness possibly secondary to anemia versus CHF exacerbation 2. elevated BNP 3. Normocytic anemia with iron deficiency 4. Small right-sided pleural effusion Plan: 1. Weakness: MRI of brain; head CT negative however concerns for other acute intracranial pathology will be evaluated. 2. CHF exacerbation: echo will be ordered as previous echoes from 2014 with ejection fraction 55%. We'll provide patient with 20 mg 1 dose of furosemide. 3. Anemia: will order a stool occult and possibly contact GI if necessary. 4. Strict I's and O's. Vitals per routine. Patient is continued on Xarelto for DVT prophylaxis; we'll discontinue Xarelto if stool occult is positive.diet: cardiac; no caffeine.
[2019-01-08] MEDS ORDERED: Rivaroxaban 15 MG Tab PO SCH (18:00)
[2019-01-08] MEDS: Magnesium Oxide 400 MG Tab PO SCH (20:30)
[2019-01-08] MEDS ORDERED: atorvaSTATin 10 MG Tab PO SCH (21:00)
[2019-01-09] MEDS ORDERED: Levothyroxine 150 MCG Tab PO SCH (06:30)
[2019-01-09] MEDS ORDERED: Omeprazole 20 MG Cap.CR PO SCH ×2 (07:30)
[2019-01-09 07:48] VITALS: BP 124/64
--- NOTE | 2019-01-09 08:47 | PCM.PN ---
- General Info Date of Service: 01/09/19 Subjective Update: Patient seen at bedside in a.m.; denies any new complaints or concerns. States she is hungry or requesting some coffee. When asked about home situation; states she can take care of herself and has plenty of help. Mentions her daughter visits her daily and lives with a family friend. Functional Status: Reports: Ambulating - Review of Systems General: Denies: Fever, Weakness, Fatigue HEENT: Reports: No Symptoms Pulmonary: Reports: No Symptoms Cardiovascular: Reports: No Symptoms Gastrointestinal: Reports: No Symptoms Genitourinary: Reports: No Symptoms Neurological: Reports: No Symptoms. Denies: Dizziness, Headache, Numbness, Weakness Psychiatric: Reports: No Symptoms - Patient Data Vitals - Most Recent: Last Vital Signs Temp 96.8 F 01/09/19 07:20 Pulse 87 01/09/19 07:20 Resp 16 01/09/19 07:20 BP 124/64 01/09/19 07:20 Pulse Ox 92 L 01/09/19 07:20 Weight - Most Recent: 130 lb 3.2 oz I&O - Last 24 Hours: Intake & Output 01/08/19 01/09/19 01/09/19 22:59 06:59 14:59 Intake Total 620 400 Output Total 730 1700 Balance -110 -1300 Lab Results Last 24 Hours: Laboratory Results - last 24 hr 01/08/19 01/08/19 01/08/19 Range/Units 09:06 09:06 09:06 WBC 4.12 (4.0-11.0) K/uL RBC 3.34 L (4.30-5.90) M/uL Hgb 7.7 L (12.0-16.0) g/dL Hct 27.0 L (36.0-46.0) % MCV 80.8 (80.0-98.0) fL MCH 23.1 L (27.0-32.0) pg MCHC 28.5 L (31.0-37.0) g/dL RDW Std Deviation 50.8 (28.0-62.0) fl RDW Coeff of Nanette 17 H (11.0-15.0) % Plt Count 178 (150-400) K/uL MPV 9.10 (7.40-12.00) fL Neut % (Auto) 56.5 (48.0-80.0) % Lymph % (Auto) 26.0 (16.0-40.0) % Gray % (Auto) 12.4 (0.0-15.0) % Eos % (Auto) 4.1 (0.0-7.0) % Baso % (Auto) 1.0 (0.0-1.5) % Neut # (Auto) 2.3 (1.4-5.7) K/uL Lymph # (Auto) 1.1 (0.6-2.4) K/uL Gray # (Auto) 0.5 (0.0-0.8) K/uL Eos # (Auto) 0.2 (0.0-0.7) K/uL Baso # (Auto) 0.0 (0.0-0.1) K/uL Nucleated RBC % 0.0 /100WBC Nucleated RBCs # 0 K/uL INR 1.37 Sodium 139 (136-145) mmol/L Potassium 4.4 (3.5-5.1) mmol/L Chloride 104 (98-107) mmol/L Carbon Dioxide 31.0 (21.0-32.0) mmol/L BUN 16 (7.0-18.0) mg/dL Creatinine 1.1 H (0.6-1.0) mg/dL Est Cr Clr Drug Dosing TNP Estimated GFR (MDRD) 46.9 ml/min Glucose 88 (74-106) mg/dL Calcium 8.6 (8.5-10.1) mg/dL Total Bilirubin 0.5 (0.2-1.0) mg/dL AST 23 (15-37) IU/L ALT 19 (14-63) IU/L Alkaline Phosphatase 54 (46-116) U/L Troponin I < 0.050 (0.000-0.056) ng/mL B-Natriuretic Peptide (<100) PG/ML Total Protein 6.3 L (6.4-8.2) g/dL Albumin 2.9 L (3.4-5.0) g/dL Globulin 3.4 (2.6-4.0) g/dL Albumin/Globulin Ratio 0.9 (0.9-1.6) Urine Color Urine Appearance Urine pH (5.0-8.0) Ur Specific [place] (1.001-1.035) Urine Protein (NEGATIVE) mg/dL Urine Glucose (UA) (NEGATIVE) mg/dL Urine Ketones (NEGATIVE) mg/dL Urine Occult Blood (NEGATIVE) Urine Nitrite (NEGATIVE) Urine Bilirubin (NEGATIVE) Urine Urobilinogen (<2.0) EU/dL Ur Leukocyte Esterase (NEGATIVE) 01/08/19 01/08/19 01/09/19 Range/Units 09:06 10:21 06:08 WBC 5.65 (4.0-11.0) K/uL RBC 3.49 L (4.30-5.90) M/uL Hgb 8.0 L (12.0-16.0) g/dL Hct 28.1 L (36.0-46.0) % MCV 80.5 (80.0-98.0) fL MCH 22.9 L (27.0-32.0) pg MCHC 28.5 L (31.0-37.0) g/dL RDW Std Deviation 51.4 (28.0-62.0) fl RDW Coeff of Nanette 18 H (11.0-15.0) % Plt Count 183 (150-400) K/uL MPV 8.90 (7.40-12.00) fL Neut % (Auto) 61.8 (48.0-80.0) % Lymph % (Auto) 24.1 (16.0-40.0) % Gray % (Auto) 11.0 (0.0-15.0) % Eos % (Auto) 2.7 (0.0-7.0) % Baso % (Auto) 0.4 (0.0-1.5) % Neut # (Auto) 3.5 (1.4-5.7) K/uL Lymph # (Auto) 1.4 (0.6-2.4) K/uL [place] # (Auto) 0.6 (0.0-0.8) K/uL Eos # (Auto) 0.2 (0.0-0.7) K/uL Baso # (Auto) 0.0 (0.0-0.1) K/uL Nucleated RBC % 0.0 /100WBC Nucleated RBCs # 0 K/uL INR Sodium (136-145) mmol/L Potassium (3.5-5.1) mmol/L Chloride (98-107) mmol/L Carbon Dioxide (21.0-32.0) mmol/L BUN (7.0-18.0) mg/dL Creatinine (0.6-1.0) mg/dL Est Cr Clr Drug Dosing Estimated GFR (MDRD) ml/min Glucose (74-106) mg/dL Calcium (8.5-10.1) mg/dL Total Bilirubin (0.2-1.0) mg/dL AST (15-37) IU/L ALT (14-63) IU/L Alkaline Phosphatase (46-116) U/L Troponin I (0.000-0.056) ng/mL B-Natriuretic Peptide 645 H (<100) PG/ML Total Protein (6.4-8.2) g/dL Albumin (3.4-5.0) g/dL Globulin (2.6-4.0) g/dL Albumin/Globulin Ratio (0.9-1.6) Urine Color YELLOW Urine Appearance CLEAR Urine pH 6.0 (5.0-8.0) Ur Specific [place] 1.015 (1.001-1.035) Urine Protein NEGATIVE (NEGATIVE) mg/dL Urine Glucose (UA) NEGATIVE (NEGATIVE) mg/dL Urine Ketones NEGATIVE (NEGATIVE) mg/dL Urine Occult Blood NEGATIVE (NEGATIVE) Urine Nitrite NEGATIVE (NEGATIVE) Urine Bilirubin NEGATIVE (NEGATIVE) Urine Urobilinogen 0.2 (<2.0) EU/dL Ur Leukocyte Esterase NEGATIVE (NEGATIVE) 01/09/19 Range/Units 06:08 WBC (4.0-11.0) K/uL RBC (4.30-5.90) M/uL Hgb (12.0-16.0) g/dL Hct (36.0-46.0) % MCV (80.0-98.0) fL MCH (27.0-32.0) pg MCHC (31.0-37.0) g/dL RDW Std Deviation (28.0-62.0) fl RDW Coeff of Nanette (11.0-15.0) % Plt Count (150-400) K/uL MPV (7.40-12.00) fL Neut % (Auto) (48.0-80.0) % Lymph % (Auto) (16.0-40.0) % Gray % (Auto) (0.0-15.0) % Eos % (Auto) (0.0-7.0) % Baso % (Auto) (0.0-1.5) % Neut # (Auto) (1.4-5.7) K/uL Lymph # (Auto) (0.6-2.4) K/uL Gray # (Auto) (0.0-0.8) K/uL Eos # (Auto) (0.0-0.7) K/uL Baso # (Auto) (0.0-0.1) K/uL Nucleated RBC % /100WBC Nucleated RBCs # K/uL INR Sodium 140 (136-145) mmol/L Potassium 4.9 (3.5-5.1) mmol/L Chloride 104 (98-107) mmol/L Carbon Dioxide 32.0 (21.0-32.0) mmol/L BUN 17 (7.0-18.0) mg/dL Creatinine 1.1 H (0.6-1.0) mg/dL Est Cr Clr Drug Dosing 25.39 Estimated GFR (MDRD) 46.9 ml/min Glucose 98 (74-106) mg/dL Calcium 8.8 (8.5-10.1) mg/dL Total Bilirubin (0.2-1.0) mg/dL AST (15-37) IU/L ALT (14-63) IU/L Alkaline Phosphatase (46-116) U/L Troponin I (0.000-0.056) ng/mL B-Natriuretic Peptide (<100) PG/ML Total Protein (6.4-8.2) g/dL Albumin (3.4-5.0) g/dL Globulin (2.6-4.0) g/dL Albumin/Globulin Ratio (0.9-1.6) Urine Color Urine Appearance Urine pH (5.0-8.0) Ur Specific [place] (1.001-1.035) Urine Protein (NEGATIVE) mg/dL Urine Glucose (UA) (NEGATIVE) mg/dL Urine Ketones (NEGATIVE) mg/dL Urine Occult Blood (NEGATIVE) Urine Nitrite (NEGATIVE) Urine Bilirubin (NEGATIVE) Urine Urobilinogen (<2.0) EU/dL Ur Leukocyte Esterase (NEGATIVE) Renato Results Last 24 Hours: Microbiology 01/08/19 15:12 Stool Occult Blood (RENATO) - Final Stool / Feces POSITIVE OCCULT BLOOD REFERENCE RANGE: NEGATIVE Med Orders - Current: Current Medications Acetaminophen (Tylenol) 650 mg PO Q4H PRN PRN Reason: Pain/Fever Atorvastatin Calcium (Lipitor) 10 mg PO BEDTIME [facility] Last Admin: 01/08/19 20:30 Dose: 10 mg Digoxin (Lanoxin) 125 mcg PO DAILY [facility] Levothyroxine Sodium (Levothyroxine) 75 mcg PO SUTUTHSA@0730 [facility] Last Admin: 01/09/19 06:43 Dose: 75 mcg Levothyroxine Sodium (Levothyroxine) 150 mcg PO MOWEFR@0730 [facility] Magnesium Oxide (Magnesium Oxide) 400 mg PO BID [facility] Last Admin: 01/08/19 20:30 Dose: 400 mg Metoprolol Succinate (Toprol Xl) 25 mg PO DAILY [facility] Omeprazole (Omeprazole) 40 mg PO ACBREAKFAST [facility] Last Admin: 01/09/19 06:43 Dose: 40 mg Ondansetron HCl (Zofran) 4 mg IVPUSH Q4H PRN PRN Reason: Nausea/Vomiting Rivaroxaban (Xarelto) 15 mg PO PCDINNER [facility] Last Admin: 01/08/19 18:10 Dose: 15 mg Discontinued Medications Furosemide (Lasix) 20 mg IVPUSH ONETIME ONE Stop: 01/08/19 14:46 Last Admin: 01/08/19 14:37 Dose: 20 mg Sodium Chloride (Normal Saline) 1,000 mls @ 500 mls/hr IV STAT ONE Stop: 01/08/19 10:45 Last Admin: 01/08/19 09:14 Dose: 500 mls/hr Omeprazole (Omeprazole) 20 mg PO ACBREAKFAST [facility] Comments:: MRI brain: No acute intracranial pathology. 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 - Exam General: Alert, Oriented HEENT: Pupils Equal, Pupils Reactive, EOMI, Mucous Membr. Moist/Speculator Neck: Supple, Trachea Midline Lungs: Clear to Auscultation, Normal Respiratory Effort Cardiovascular: Regular Rate, Irregular Rhythm GI/Abdominal Exam: Normal Bowel Sounds, No Distention Back Exam: No: Normal Inspection (Moderate kyphosis) Extremities: Normal Inspection Skin: Warm, Dry, Intact Neurological: No New Focal Deficit, Normal Speech, Sensation Intact, Cranial Nerves Intact Psy/Mental Status: Alert, Normal Affect, Normal Mood - My Orders Last 24 Hours: My Active Orders 01/08/19 12:54 Intake and Output Strict [RC] Q12H Vital Signs [RC] Q4H PT Evaluation and Treatment [CONS] Routine Brain wo Cont [MR] Stat Echo Comp wo Cont [US] Stat Resuscitation Status Routine 01/08/19 12:57 Acetaminophen [Tylenol] 650 mg PO Q4H PRN 01/08/19 12:58 Ondansetron [Zofran] 4 mg IVPUSH Q4H PRN 01/08/19 18:00 Rivaroxaban [Xarelto] 15 mg PO PCDINNER 01/08/19 19:05 Consult to Occupational Therapy [OT Evaluation and Treatment] [CONS] Routine 01/08/19 21:00 Magnesium Oxide 400 mg PO BID atorvaSTATin [Lipitor] 10 mg PO BEDTIME 01/08/19 Dinner Heart Healthy Diet [DIET] 01/09/19 06:30 Levothyroxine 75 mcg PO SUTUTHSA@0730 01/09/19 07:30 Omeprazole 40 mg PO ACBREAKFAST 01/09/19 09:00 Digoxin [Lanoxin] 125 mcg PO DAILY Metoprolol Succinate [Toprol XL] 25 mg PO DAILY 01/10/19 05:11 BASIC METABOLIC PANEL,BMP [CHEM] AM CBC WITH AUTO DIFF [HEME] AM 01/10/19 06:30 Levothyroxine 150 mcg PO MOWEFR@0730 01/11/19 05:11 BASIC METABOLIC PANEL,BMP [CHEM] AM CBC WITH AUTO DIFF [HEME] AM 01/12/19 05:11 BASIC METABOLIC PANEL,BMP [CHEM] AM CBC WITH AUTO DIFF [HEME] AM 01/13/19 05:11 BASIC METABOLIC PANEL,BMP [CHEM] AM CBC WITH AUTO DIFF [HEME] AM - Plan Plan:: Assessment: 1. weakness possibly secondary to anemia versus CHF exacerbation 2. elevated BNP 3. Normocytic anemia with iron deficiency 4. Small right-sided pleural effusion 1. Weakness: MRI of brain and head CT negative. 2. CHF exacerbation: echo ordered/performed..awaiting read 3. Anemia: Positive stool occult; patient will receive our infusions today: outpatient versus inpatient 4. Strict I's and O's. Vitals per routine. Patient is continued on Xarelto for DVT prophylaxis; diet: cardiac; no caffeine. We'll continue DVT protocol of Ben Wilder's patient was explained risks versus benefits of continuing [place] despite GI bleeding woman is stable and rising. Patient is scheduled for a iron infusion today.
[2019-01-09] MEDS ORDERED: Metoprolol Succinate 25 MG Tab.ER PO SCH (09:00)
[2019-01-09] MEDS ORDERED: Digoxin 125 MCG Tab PO SCH (09:00)
[2019-01-09] MEDS: Magnesium Oxide 400 MG Tab PO SCH (09:21)
--- NOTE | 2019-01-09 10:33 | PCM.DCSUM1 ---
<Danay Blackmon - Last Filed: 01/09/19 11:15> Discharge Summary - Hospital Course Free Text/Narrative:: Discharge summary Admission date January 08, 2019 Discharge date January 09, 2019 Admission diagnoses: weakness with concerns for stroke versus normocytic anemia/chronic blood loss Discharge diagnoses: weakness possibly secondary to TIA versus chronic blood loss Consultations: None Procedures: none Hospital course: Patient is a 88-year-old female presenting to the ED via EMS with concerns for stroke like symptoms. Patient was speaking with daughter over the phone ; noticed patient was slurring her speech; on arrival to place of residence daughter states patient was fatigued and behaving against her baseline; ultimately called for EMS support. On arrival to ED patient/daughter was no longer complaining of slurring of speech however did have a mild shortness of breath for which he received 1 L nasal cannula. BNP was elevated at 690 and was given 1 dose of 20 Lasix. Patient's hemoglobin was also at 7.7 was ultimately decided to defer transfusion as she was scheduled for transfusion the following day and other symptoms had since resolved e.g fatigue.Concern for stroke versus TIA were further investigated with MRI of brain after CT of the head was negative. Stool occult was positive on the following day of admission however patient agreed to continue eliquis despite GI bleeding; after risks and benefits were discussed appropriately with patient. Day of discharge patient ultimately felt better and did not have any other major concerns MRI was negative, patient requested to go home and was satisfied with care at home. Patient deferred recommendation for home health she states"I have plenty of support at home with my daughter and family friend who lives with me". patient schedule for iron infusion at [facility] Discharge condition: stable Disposition: home Discharge medications: Metoprolol Succinate [Toprol XL] 25 mg PO DAILY 03/06/14 [History] Omeprazole 20 mg PO ACBREAKFAST 03/06/14 [History] Levothyroxine 150 mcg PO MOWEFR@0730 03/19/14 [History] atorvaSTATin [Lipitor] 10 mg PO BEDTIME 03/19/14 [History] Digoxin [Digox] 125 mcg PO DAILY 03/21/15 [History] Levothyroxine 75 mcg PO SUTUTHSA@0730 05/16/16 [History] Magnesium Oxide 400 mg PO BID 05/16/16 [History] Rivaroxaban [Xarelto] 15 mg PO PCDINNER 10/28/16 [History] Discharge instructions: echocardiogram ordered for patient with concerns of worsening heart failure with elevated BNP however shortness of breath had resolved and no changes were seen with Lasix given.Patient was stable; advised to follow with PCP regarding echo-cardiogram results in 1 week Follow-up: patient advised follow-up in 1 week; discuss results of echocardiogram -advised to follow-up with [facility] for iron infusion as scheduled Diagnosis: Stroke: No - Discharge Data Discharge Date: 01/09/19 Discharge Disposition: Home, Self-Care 01 Condition: Stable - Patient Summary/Data Consults: Consultations 01/08/19 12:54 PT Evaluation and Treatment [CONS] Routine 01/08/19 19:05 Consult to Occupational Therapy [OT Evaluation and Treatment] [CONS] Routine - Patient Instructions Activity: As Tolerated Driving: Do Not Drive Showering/Bathing: May Shower Notify Provider of: Fever, Increased Pain, Swelling and Redness, Drainage, Nausea and/or Vomiting Other/Special Instructions: comntact providor if symptoms of chest pain, shortness of breath or uncontrollable pain is experienced - Discharge Plan *PRESCRIPTION DRUG MONITORING PROGRAM REVIEWED*: No *COPY OF PRESCRIPTION DRUG MONITORING REPORT IN PATIENT CECILIA: No Home Medications: Home Meds Metoprolol Succinate [Toprol XL] 25 mg PO DAILY 03/06/14 [History] Omeprazole 20 mg PO ACBREAKFAST 03/06/14 [History] Levothyroxine 150 mcg PO MOWEFR@0730 03/19/14 [History] atorvaSTATin [Lipitor] 10 mg PO BEDTIME 03/19/14 [History] Digoxin [Digox] 125 mcg PO DAILY 03/21/15 [History] Levothyroxine 75 mcg PO SUTUTHSA@0730 05/16/16 [History] Magnesium Oxide 400 mg PO BID 05/16/16 [History] Rivaroxaban [Xarelto] 15 mg PO PCDINNER 10/28/16 [History] Oxygen Therapy Mode: Room Air Patient Handouts: Heart Failure, [id number], Form - Daily Weight Record Referrals: [facility] [Outside] Donnie Knutson MD [Physician] - 01/29/19 2:00 pm - Discharge Summary/Plan Comment DC Time >30 min.: No - Patient Data Vitals - Most Recent: Last Vital Signs Temp 96.8 F 01/09/19 07:20 Pulse 87 01/09/19 09:21 Resp 16 01/09/19 07:20 BP 124/64 01/09/19 09:21 Pulse Ox 92 L 01/09/19 07:20 Weight - Most Recent: 59.058 kg I&O - Last 24 hours: Intake & Output 01/08/19 01/09/19 01/09/19 22:59 06:59 14:59 Intake Total 620 400 Output Total 730 1700 Balance -110 -1300 Lab Results - Last 24 hrs: Laboratory Results - last 24 hr 01/09/19 01/09/19 Range/Units 06:08 06:08 WBC 5.65 (4.0-11.0) K/uL RBC 3.49 L (4.30-5.90) M/uL Hgb 8.0 L (12.0-16.0) g/dL Hct 28.1 L (36.0-46.0) % MCV 80.5 (80.0-98.0) fL MCH 22.9 L (27.0-32.0) pg MCHC 28.5 L (31.0-37.0) g/dL RDW Std Deviation 51.4 (28.0-62.0) fl RDW Coeff of Nanette 18 H (11.0-15.0) % Plt Count 183 (150-400) K/uL MPV 8.90 (7.40-12.00) fL Neut % (Auto) 61.8 (48.0-80.0) % Lymph % (Auto) 24.1 (16.0-40.0) % [place] % (Auto) 11.0 (0.0-15.0) % Eos % (Auto) 2.7 (0.0-7.0) % Baso % (Auto) 0.4 (0.0-1.5) % Neut # (Auto) 3.5 (1.4-5.7) K/uL Lymph # (Auto) 1.4 (0.6-2.4) K/uL [place] # (Auto) 0.6 (0.0-0.8) K/uL Eos # (Auto) 0.2 (0.0-0.7) K/uL Baso # (Auto) 0.0 (0.0-0.1) K/uL Nucleated RBC % 0.0 /100WBC Nucleated RBCs # 0 K/uL Sodium 140 (136-145) mmol/L Potassium 4.9 (3.5-5.1) mmol/L Chloride 104 (98-107) mmol/L Carbon Dioxide 32.0 (21.0-32.0) mmol/L BUN 17 (7.0-18.0) mg/dL Creatinine 1.1 H (0.6-1.0) mg/dL Est Cr Clr Drug Dosing 25.39 mL/min Estimated GFR (MDRD) 46.9 ml/min Glucose 98 (74-106) mg/dL Calcium 8.8 (8.5-10.1) mg/dL ROLAN Results - Last 24 hrs: Microbiology 01/08/19 15:12 Stool Occult Blood (ROLAN) - Final Stool / Feces POSITIVE OCCULT BLOOD REFERENCE RANGE: NEGATIVE Med Orders - Current: Current Medications Acetaminophen (Tylenol) 650 mg PO Q4H PRN PRN Reason: Pain/Fever Atorvastatin Calcium (Lipitor) 10 mg PO BEDTIME [facility] Last Admin: 01/08/19 20:30 Dose: 10 mg Digoxin (Lanoxin) 125 mcg PO DAILY [facility] Last Admin: 01/09/19 09:21 Dose: 125 mcg Levothyroxine Sodium (Levothyroxine) 75 mcg PO SUTUTHSA@0730 [facility] Last Admin: 01/09/19 06:43 Dose: 75 mcg Levothyroxine Sodium (Levothyroxine) 150 mcg PO MOWEFR@0730 [facility] Magnesium Oxide (Magnesium Oxide) 400 mg PO BID [facility] Last Admin: 01/09/19 09:21 Dose: 400 mg Metoprolol Succinate (Toprol Xl) 25 mg PO DAILY [facility] Last Admin: 01/09/19 09:21 Dose: 25 mg Omeprazole (Omeprazole) 40 mg PO ACBREAKFAST [facility] Last Admin: 01/09/19 06:43 Dose: 40 mg Ondansetron HCl (Zofran) 4 mg IVPUSH Q4H PRN PRN Reason: Nausea/Vomiting Rivaroxaban (Xarelto) 15 mg PO PCDINNER [facility] Last Admin: 01/08/19 18:10 Dose: 15 mg Discontinued Medications Furosemide (Lasix) 20 mg IVPUSH ONETIME ONE Stop: 01/08/19 14:46 Last Admin: 01/08/19 14:37 Dose: 20 mg Sodium Chloride (Normal Saline) 1,000 mls @ 500 mls/hr IV STAT ONE Stop: 01/08/19 10:45 Last Admin: 01/08/19 09:14 Dose: 500 mls/hr Omeprazole (Omeprazole) 20 mg PO ACBREAKFAST [facility] <Robert Jaramillo J - Last Filed: 01/11/19 10:44> Discharge Summary - Patient Summary/Data Consults: Consultations 01/08/19 12:54 PT Evaluation and Treatment [CONS] Routine 01/08/19 19:05 Consult to Occupational Therapy [OT Evaluation and Treatment] [CONS] Routine - Patient Data Vitals - Most Recent: Last Vital Signs Temp 36.0 C 01/09/19 07:20 Pulse 87 01/09/19 09:21 Resp 16 01/09/19 07:20 BP 124/64 01/09/19 09:21 Pulse Ox 92 L 01/09/19 07:20 Med Orders - Current: Current Medications Discontinued Medications Acetaminophen (Tylenol) 650 mg PO Q4H PRN PRN Reason: Pain/Fever Atorvastatin Calcium (Lipitor) 10 mg PO BEDTIME [facility] Last Admin: 01/08/19 20:30 Dose: 10 mg Digoxin (Lanoxin) 125 mcg PO DAILY [facility] Last Admin: 01/09/19 09:21 Dose: 125 mcg Furosemide (Lasix) 20 mg IVPUSH ONETIME ONE Stop: 01/08/19 14:46 Last Admin: 01/08/19 14:37 Dose: 20 mg Sodium Chloride (Normal Saline) 1,000 mls @ 500 mls/hr IV STAT ONE Stop: 01/08/19 10:45 Last Admin: 01/08/19 09:14 Dose: 500 mls/hr Levothyroxine Sodium (Levothyroxine) 75 mcg PO SUTUTHSA@0730 [facility] Last Admin: 01/09/19 06:43 Dose: 75 mcg Levothyroxine Sodium (Levothyroxine) 150 mcg PO MOWEFR@0730 [facility] Magnesium Oxide (Magnesium Oxide) 400 mg PO BID [facility] Last Admin: 01/09/19 09:21 Dose: 400 mg Metoprolol Succinate (Toprol Xl) 25 mg PO DAILY [facility] Last Admin: 01/09/19 09:21 Dose: 25 mg Omeprazole (Omeprazole) 20 mg PO ACBREAKFAST [place]AMIL[place] Omeprazole (Omeprazole) 40 mg PO ACBREAKFAST [facility] Last Admin: 01/09/19 06:43 Dose: 40 mg Ondansetron HCl (Zofran) 4 mg IVPUSH Q4H PRN PRN Reason: Nausea/Vomiting Rivaroxaban (Xarelto) 15 mg PO PCDINNER [facility] Last Admin: 01/08/19 18:10 Dose: 15 mg - Free Text/Narrative Note: I have evaluated the patient. I have discussed findings and treatment plan with resident. I agree with the assessment and plan outlined in the following note.
[2019-01-10] MEDS ORDERED: Levothyroxine 150 MCG Tab PO SCH (06:30)
--- NOTE | 2019-01-10 14:30 | MR ---
Final Report: INDICATION: Weakness and slurring of speech. TECHNIQUE: Brain MRI without contrast. The following sequences were obtained: Sagittal T1 weighted sequence. DWI and ADC mapping sequences. Axial FLAIR and VIK T2 weighted sequences. Axial SWI sequence. COMPARISON: CT head from 01/08/2019. FINDINGS: Images degraded by motion artifact. No acute infarct or hemorrhage. Mild generalized parenchymal volume loss. Moderate burden of T2 hyperintense signal abnormality within the supratentorial white matter compatible with chronic microvascular degenerative change. Chronic lacunar infarct left cerebellar hemisphere. No mass effect or herniation. No hydrocephalus or extra-axial collections. All the major intracranial vascular structures demonstrate normal flow-related signal. Bilateral intra-ocular lens implants. No calvarial or skull base marrow signal abnormality. No obstructive sinus disease. No extracranial soft tissue findings. IMPRESSION: 1. Images degraded by motion artifact. 2. No evidence of acute ischemia. 3. Mild generalized parenchymal volume loss. 4. Moderate chronic microvascular degenerative changes within the supratentorial white matter. Dictated by Paras Merchant MD @ Jan 08 2019 8:43PM Signed by: Paras Merchant MD @01/08/2019 8:49:36 PM (Electronic Signature) MTDD
--- NOTE | 2019-01-10 16:20 | ECHO ---
The echocardiogram report can be seen in this patient's EMR (Electronic Medical Record) in the REPORTS section. The echocardiogram report has also been scanned into PACS and can be seen there as well. ALEYDA
== END 2019-01-09 10:35 | disposition home or self-care (01) ==
LOC: MW.ED 08:43 → MW.MS 10:55
PROVIDERS: ADMIT Internal Medicine; ATTEND Internal Medicine
DX: R53.1 Weakness (principal); D50.9 Iron deficiency anemia, unspecified; I08.8 Other rheumatic multiple valve diseases; I48.91 Unspecified atrial fibrillation; I42.9 Cardiomyopathy, unspecified; M17.0 Bilateral primary osteoarthritis of knee; I50.9 Heart failure, unspecified; E03.9 Hypothyroidism, unspecified; E53.8 Deficiency of other specified B group vitamins; R79.89 Other specified abnormal findings of blood chemistry; Z98.890 Other specified postprocedural states; Z87.891 Personal history of nicotine dependence; Z86.73 Personal history of transient ischemic attack (TIA), and cerebral infarction without residual deficits; Z79.01 Long term (current) use of anticoagulants; Z79.890 Hormone replacement therapy; Z79.899 Other long term (current) drug therapy
CPT/HCPCS: 36415; 70450; 70551; 71045; 80048; 80053; 81003; 82272; 83880; 84484; 85025; 85610; 93005; 93306; 96360; 96361; 99285; A9270; J7040; 96374; G0378

== ENCOUNTER 2019-05-07 22:04 | Emergency (ER) | payer MEDICARE, MEDICAID ==
[2019-05-07] MEDS ORDERED: EPINEPHrine 1:10,000 1 MG/10 ML Syringe IV ONE ×5 (22:05)
[2019-05-07] MEDS ORDERED: Rocuronium 100 MG/10 ML MDV IVPUSH ONE (22:05)
--- NOTE | 2019-05-07 22:47 | EDM.PDOC ---
ED HPI GENERAL MEDICAL PROBLEM - General Chief Complaint: Syncope Stated Complaint: EMS ARRIVAL Time Seen by Provider: 05/07/19 22:46 Source of Information: Reports: Family History Limitations: Reports: No Limitations - History of Present Illness INITIAL COMMENTS - FREE TEXT/NARRATIVE: This 89-ye. But witness states that she was unable to talk for 10 minutes with no soft febrile activity ar-old female presents the emergency room chief complaint of having a true syncopal episode. Patient apparently walked to a chair fell on that so far on her face was unable to talk for over 10 minutes. Paramedics were called patient is awake alert and oriented at this time patient does not really know what happened to her she states that she was dizzy and did not pass out the patient had no seizure activity per witness. Patient has been having decrease fluid intake over the last 3 days and is been acting strange. Onset: Today Duration: Hour(s):, Improving Location: Reports: Head Severity: Moderate Improves with: Reports: None Worsens with: Reports: None Associated Symptoms: Reports: Syncope, Weakness - Related Data Allergies Allergy/AdvReac Type Severity Reaction Status Date / Time aspirin Allergy Other Verified 05/07/19 22:08 Home Meds: Home Meds Metoprolol Succinate [Toprol XL] 25 mg PO DAILY 03/06/14 [History] Omeprazole 20 mg PO ACBREAKFAST 03/06/14 [History] Levothyroxine 150 mcg PO MOWEFR@0730 03/19/14 [History] atorvaSTATin [Lipitor] 10 mg PO BEDTIME 03/19/14 [History] Digoxin [Digox] 125 mcg PO DAILY 03/21/15 [History] Levothyroxine 75 mcg PO SUTUTHSA@0730 05/16/16 [History] Magnesium Oxide 400 mg PO BID 05/16/16 [History] Rivaroxaban [Xarelto] 15 mg PO PCDINNER 10/28/16 [History] Past Medical History Cardiovascular History: Reports: Afib, Heart Failure Genitourinary History: Reports: UTI, Recurrent Other Genitourinary History: Kidney infection [employer] History: Reports: Musculoskeletal History: Reports: Arthritis Neurological History: Reports: CVA Endocrine/Metabolic History: Reports: Hypothyroidism Hematologic History: Reports: B12 Deficiency Oncologic (Cancer) History: Reports: Colon Dermatologic History: Reports: None - Infectious Disease History Infectious Disease History: Reports: None - Past Surgical History HEENT Surgical History: Reports: Cataract Surgery Cardiovascular Surgical History: Reports: None GI Surgical History: Reports: Hernia, Inguinal Social & Family History - Family History Family Medical History: Noncontributory - Tobacco Use Smoking Status *Q: Never Smoker - Caffeine Use Caffeine Use: Reports: None - Recreational Drug Use Recreational Drug Use: No ED ROS GENERAL - Review of Systems Review Of Systems: See Below Constitutional: Reports: Weakness, Fatigue HEENT: Reports: No Symptoms Respiratory: Reports: No Symptoms, Other (Episode of panting while unresponsive ) Cardiovascular: Reports: No Symptoms Endocrine: Reports: No Symptoms GI/Abdominal: Reports: No Symptoms : Reports: No Symptoms Musculoskeletal: Reports: No Symptoms Skin: Reports: No Symptoms Neurological: Reports: Dizziness, Syncope, Trouble Speaking Psychiatric: Reports: No Symptoms Hematologic/Lymphatic: Reports: No Symptoms Immunologic: Reports: No Symptoms - Physical Exam Exam: See Below Text/Narrative:: 89-year-old female with an apparent syncopal event. Patient is awake alert and oriented at this time. Patient has no signs of trauma although she fell on her face. Patient has no neck pain. Patient's chest lungs and abdomen are normal. Patient is extremities are all normal with good pulses. Exam Limited By: No Limitations General Appearance: Alert, WD/WN, No Apparent Distress Ears: Normal External Exam, Normal Canal, Hearing Grossly Normal Nose: Normal Inspection, Normal Mucosa, No Blood Throat/Mouth: Normal Inspection, Normal Lips, Normal Teeth, Normal Oropharynx Head Exam: Atraumatic, Normocephalic Neck: Normal Inspection, Supple, Non-Tender Respiratory/Chest: No Respiratory Distress, Lungs Clear, Normal Breath Sounds, No Accessory Muscle Use, Chest Non-Tender Cardiovascular: Normal Peripheral Pulses, Regular Rate, Rhythm, No Edema, No JVD , No Murmur GI/Abdominal: Normal Bowel Sounds, Soft, Non-Tender (Female) Exam: Deferred Rectal (Female) Exam: Normal Rectal Tone, Heme + Stool, Other (Stool guaiac positive.) Neuro Exam (Abbreviated): Alert, Oriented, CN II-XII Intact, Normal Cognition, Other (Her gait has not been tested) Back Exam: Normal Inspection Extremities: Normal Inspection Psychiatric: Normal Affect Skin Exam: Warm, Dry, Intact, Normal Color, No Rash EKG INTERPRETATION Rhythm: A-Fib QRS: RBBB (No evidence of acute AK) Course - Vital Signs Last Recorded V/S: Last Vital Signs Temp 96.4 F 05/07/19 22:08 Pulse 89 05/07/19 23:49 Resp 16 05/07/19 23:49 BP 102/33 L 05/07/19 23:49 Pulse Ox 92 L 05/07/19 22:08 -89 year-old female presents emergency room chief complaint of a altered level of consciousness/syncopal episode. Bystanders states that patient was panting and for 10 minutes was unable to talk. Patient denies any trauma. Patient's face fell into a couch. When paramedics arrived patient was awake and alert and responsive. Patient states she just got dizzy and fell. Reveals patient has normal cognition normal chest x-ray normal abdominals exam lungs are clear patient is heme positive from below with brown stools. Patient' s EKG is A. fib. Patient has positive troponin of 0.2. Patient will be transferred with a diagnosis of #1 non-ST segment elevation AK #2 rectal bleeding GI bleeding #3 acute anemia. Patient's hemoglobin 6.7 normally she is 8.0. Patient agrees to transfer patient has been typed and screened and will be transfused a unit of blood. Exam - Orders/Labs/Meds Orders: Active Orders 24 hr Category Date Time Status EKG 12 Lead [EKG Documentation Completion] [RC] STAT Care 05/07/19 22:12 Active INFLUENZA A+B AG SCREEN [RM] Stat Lab 05/07/19 22:57 Ordered TYPE AND SCREEN [BBK] Stat Lab 05/08/19 01:37 Ordered UA RFX ROLAN AND CULT IF INDIC [URIN] Stat Lab 05/07/19 22:56 Ordered Sodium Chloride 0.9% [Normal Saline] 1,000 ml Med 05/07/19 23:00 Active IV ASDIRECTED Medication Orders Sodium Chloride (Normal Saline) 1,000 mls @ 100 mls/hr IV ASDIRECTED YAMILKA Last Admin: 05/07/19 23:48 Dose: 100 mls/hr Labs: Laboratory Tests 05/07/19 05/07/19 05/07/19 Range/Units 22:49 22:49 22:49 WBC 4.72 (4.0-11.0) K/uL RBC 2.86 L (4.30-5.90) M/uL Hgb 6.9 L (12.0-16.0) g/dL Hct 24.7 L (36.0-46.0) % MCV 86.4 (80.0-98.0) fL MCH 24.1 L (27.0-32.0) pg MCHC 27.9 L (31.0-37.0) g/dL RDW Std Deviation 55.0 (28.0-62.0) fl RDW Coeff of Nanette 18 H (11.0-15.0) % Plt Count 252 (150-400) K/uL MPV 9.20 (7.40-12.00) fL Neut % (Auto) 60.0 (48.0-80.0) % Lymph % (Auto) 26.3 (16.0-40.0) % Warren % (Auto) 11.4 (0.0-15.0) % Eos % (Auto) 1.7 (0.0-7.0) % Baso % (Auto) 0.6 (0.0-1.5) % Neut # (Auto) 2.8 (1.4-5.7) K/uL Lymph # (Auto) 1.2 (0.6-2.4) K/uL Warren # (Auto) 0.5 (0.0-0.8) K/uL Eos # (Auto) 0.1 (0.0-0.7) K/uL Baso # (Auto) 0.0 (0.0-0.1) K/uL Nucleated RBC % 1.6 /100WBC Nucleated RBCs # 0 K/uL INR 1.26 Sodium 142 (136-145) mmol/L Potassium 4.5 (3.5-5.1) mmol/L Chloride 107 (98-107) mmol/L Carbon Dioxide 24.0 (21.0-32.0) mmol/L BUN 13 (7.0-18.0) mg/dL Creatinine 1.3 H (0.6-1.0) mg/dL Est Cr Clr Drug Dosing 27.31 mL/min Estimated GFR (MDRD) 38.6 ml/min Glucose 125 H (74-106) mg/dL Calcium 8.0 L (8.5-10.1) mg/dL Total Bilirubin 0.3 (0.2-1.0) mg/dL AST 33 (15-37) IU/L ALT 27 (14-63) IU/L Alkaline Phosphatase 76 (46-116) U/L Troponin I 0.234 H* (0.000-0.056) ng/mL Total Protein 6.3 L (6.4-8.2) g/dL Albumin 2.7 L (3.4-5.0) g/dL Globulin 3.6 (2.6-4.0) g/dL Albumin/Globulin Ratio 0.8 L (0.9-1.6) Meds: Medications Generic Name Dose Route Start Last Admin Trade Name Freq PRN Reason Stop Dose Admin Sodium Chloride 1,000 mls @ 100 mls/hr 05/07/19 23:00 05/07/19 23:48 Normal Saline IV 100 mls/hr ASDIRECTED YAMILKA Administration Departure - Departure Time of Disposition: 01:49 ( ) Disposition: DC/Tfer to Acute Hospital 02 Condition: Fair Clinical Impression: Non-STEMI (non-ST elevated myocardial infarction), Syncopal episodes, Anemia due to GI blood loss - Discharge Information Referrals: Donnie Knutson MD [Primary Care Provider] - Forms: ED Department Discharge Sepsis Event Note - Evaluation Sepsis Screening Result: No Definite Risk - Focused Exam Vital Signs: Vital Signs Temp Pulse Resp BP Pulse Ox 05/07/19 23:49 89 16 102/33 L 05/07/19 22:08 96.4 F 97 18 100/56 L 92 L Date Exam was Performed: 05/08/19 Time Exam was Performed: 01:49 - My Orders Last 24 Hours: My Active Orders 05/07/19 22:12 EKG 12 Lead [EKG Documentation Completion] [RC] STAT 05/07/19 22:56 UA RFX ROLAN AND CULT IF INDIC [URIN] Stat 05/07/19 22:57 INFLUENZA A+B AG SCREEN [RM] Stat 05/07/19 23:00 Sodium Chloride 0.9% [Normal Saline] 1,000 ml IV ASDIRECTED 05/08/19 01:37 TYPE AND SCREEN [BBK] Stat - Assessment/Plan Last 24 Hours: My Active Orders 05/07/19 22:12 EKG 12 Lead [EKG Documentation Completion] [RC] STAT 05/07/19 22:56 UA RFX ROLAN AND CULT IF INDIC [URIN] Stat 05/07/19 22:57 INFLUENZA A+B AG SCREEN [RM] Stat 05/07/19 23:00 Sodium Chloride 0.9% [Normal Saline] 1,000 ml IV ASDIRECTED 05/08/19 01:37 TYPE AND SCREEN [BBK] Stat
[2019-05-07] MEDS ORDERED: Sodium Chloride 0.9% 1,000 ML IV SCH (23:00)
[2019-05-07 23:23] LABS: POTASSIUM,K 4.5 mmol/L (3.5-5.1)
--- NOTE | 2019-05-08 00:50 | CT ---
INDICATION: Syncope. History of stroke. COMPARISON: 01/08/2019 TECHNIQUE: CT examination of the head was performed with 3 mm thick axial sections without intravenous contrast. Images were obtained from the vertex of the skull through the skull base, and I examined the images with the brain and bone windows. Please note that all CT scans at this facility use dose modulation, iterative reconstruction, and/or weight-based dosing when appropriate to reduce radiation dose to as low as reasonably achievable. FINDINGS: The brain is normal in appearance for the patient`s age on today`s study, with no sign of mass lesion, mass effect, hemorrhage, or edema. There is stable moderate dilatation of the ventricles and sulci representing age-appropriate atrophy. Again seen are mild bilateral subdural hygromas overlying the convexities. There is stable moderate periventricular and subcortical white matter hypodensity from age appropriate small vessel ischemia. Again seen are patchy areas of low density in the posterior thalami from old lacunar infarcts. The visualized portions of the orbits are normal in appearance status post cataract surgery. The visualized paranasal sinuses and mastoids are clear. The osseous structures are normal in their appearance with no sign of abnormality in the skull base or calvarium. IMPRESSION: No sign of acute injury to the brain. Stable moderate age appropriate small vessel ischemia and moderate age-appropriate atrophy. Please note that all CT scans at this facility use dose modulation, iterative reconstruction, and/or weight-based dosing when appropriate to reduce radiation dose to as low as reasonably achievable. Dictated by Matthew Rogers MD @ May 08 2019 12:45AM Signed by Dr. Matthew Rogers @ May 08 2019 12:48AM
--- NOTE | 2019-05-08 01:31 | CR ---
INDICATION: syncope. hx of afib and stroke HISTORY: Syncope. A true fibrillation/stroke. COMPARISON: 01/08/2019. TECHNIQUE: Chest 1 view upright. FINDINGS: Enlargement of the cardiac silhouette. Pulmonary vasculature is distinct. There is no acute airspace disease. Blunting of both lateral costophrenic sulci, unchanged from previous. The osseous structures are intact. The central airway is normal. Paucity of abdominal bowel gas in the upper abdomen. IMPRESSION: Stable exam when compared with 01/08/2019. Dictated by Paxton Almanza MD @ 05/08/2019 1:30:37 AM Dictated by: Paxton Almanza MD @ 05/08/2019 01:30:44 (Electronically Signed)
[2019-05-08 02:35] VITALS: BP 114/52; PULSE 85
[2019-05-08] MEDS ORDERED: propofoL 100 ML ONE (03:32)
--- NOTE | 2019-05-08 04:15 | CR ---
HISTORY: Status post intubation. COMPARISON: From yesterday FINDINGS: A portable erect AP view of the chest was obtained at 0344 hours. During the interval, an endotracheal tube has been placed with its tip in satisfactory position 2 centimeters below the thoracic inlet. External pacemaker leads have been applied as well. The lungs remain clear. There is no change in blunting of both costophrenic angles consistent with previous scarring. The heart remains mildly enlarged. The mediastinum is otherwise normal in appearance. The osseous structures are normal in appearance for the patient`s age. IMPRESSION: Satisfactory positioning of endotracheal tube. No change in mild cardiomegaly. No active disease seen in the chest. Dictated by Matthew Rogers MD @ May 08 2019 4:11AM Signed by Dr. Matthew Rogers @ May 08 2019 4:13AM
[2019-05-08] MEDS ORDERED: EPINEPHrine 1:10,000 1 MG/10 ML Syringe IVPUSH ONE (07:00)
[2019-05-08] MEDS ORDERED: Succinylcholine 200 MG/10 ML MDV IV STA (07:02)
[2019-05-08] MEDS ORDERED: Amiodarone 300 MG in Dextrose 5% in Water 100 ML IV ONE ×2 (07:02)
[2019-05-08] MEDS ORDERED: Sodium Chloride 0.9% 1,000 ML IV ONE ×3 (07:06→07:07)
[2019-05-08] MEDS ORDERED: propofoL 100 ML IV SCH (07:15)
== END 2019-05-08 08:14 | disposition expired ==
LOC: MW.ED 22:04
DX: I21.4 Non-ST elevation (NSTEMI) myocardial infarction (principal); K92.2 Gastrointestinal hemorrhage, unspecified; D50.0 Iron deficiency anemia secondary to blood loss (chronic); I50.9 Heart failure, unspecified; E03.9 Hypothyroidism, unspecified; Z86.73 Personal history of transient ischemic attack (TIA), and cerebral infarction without residual deficits; Z79.890 Hormone replacement therapy; Z79.899 Other long term (current) drug therapy; Z88.6 Allergy status to analgesic agent
CPT/HCPCS: 31500; 36415; 36430; 36600; 43752; 51702; 70450; 71045; 80053; 82803; 84484; 85025; 85610; 86850; 86900; 86901; 86920; 86921; 86922; 92950; 92960; 93005; 94002; 96361; 96374; 99291; 99292; J0171; J0282; J0330; J2704; J7030; J7060; P9016; 99285